=== PATIENT | female | born 1960 | race Caucasian/White ===

== ENCOUNTER 2017-04-17 07:54 | Day surgery (SDC) | payer OTHER ==
[~2017-04-17] VITALS: Ht 160 cm; Wt 68.5 kg
[~2017-04-17 07:54] MED LIST: 0.9% Sodium Chloride 1,000 ML IV SCH; ALBU6.7H INH; ECON15CR10 TOP; PRE20 PO; PRE625 VAGINAL; Sodium Chloride LOK Flush 10 mL Syringe IV PRN; TRIA60LO12 TP; fentaNYL-PF 50 mCg/mL 2 mL Inj IVPUSH PRN
[2017-04-17 08:15] VITALS: BP 148/106; PULSE 110; O2SAT 96
--- NOTE | 2017-04-17 09:27 | PCM.ENDCOL ---
Colonoscopy Date of Service: Apr 17, 2017 Physician Hiram Godinez MD Pre Procedure Diagnosis: Diarrhea family history of colon cancer Post Procedure Dx & Findings: Hemorrhoids diverticuli Procedure Colonoscopy PROCEDURE IN DETAIL: Prep adequate Withdrawal time 12 minutes After unremarkable rectal examination except for there was a 2 mm spot perianally ,the Olympus video colonoscope was inserted patient's anal canal and was advanced to cecum. Landmarks were identified including the ileocecal valve and appendiceal orifice. Scope further events to terminal ileum. Advanced 8 cm. Visualized terminal ileum show normal villous structures of any ulcer mass or erosions. Scope was withdrawn systematically. Visualized colonic mucosa showed healthy shiny mucosa with normal healthy-appearing vasculature. Diverticuli noted small mostly in the sigmoid however isolated up to the ascending colon. During the procedure, she mentions the identical discomfort while going through the sigmoid colon. Random biopsies are done for workup of diarrhea from the cecum to the rectum. In the rectum retroflexion was done which showed hemorrhoids. Anal canal was inspected carefully on the way out and hemorrhoids noted. Impression Diverticulosis Patient had identical discomfort when going through the sigmoid colon. 2 mm spot perianal. Patient knew about this and she said she has had this for many years. The primary care doctor is following a carefully according to the patient. I will defer this management to the primary care doctor. Hemorrhoids Recommendation Repeat colonoscopy 5 years Diverticular diet Presedation Assessment Risks and Benefits Informed consent was obtained from the patient after all risks and benefits including but not limited to drug reaction, infection, pain, bleeding, perforation, as well as alternatives were discussed. Patient monitoring Continuous pulse oximetry, cardiac monitoring, blood pressure monitoring, IV access, and oxygen at 2L per nasal cannula. Periprocedural Fentanyl: Fentanyl 200mcg Incrementally Midazolam: Midazolam 10mg Incrementally Complications There were no periprocedural complications identified. Post Procedure Plan Post Procedure Recommendations 1. Restrict activities today. 2. Resume normal activities in the morning. 3. Resume medications. 4. Patient informed of normal post procedure side effects as bloating, drowsiness, blood streaking in the stool. 5. average risk CRCS. If colon polyps come back as: -Hyperplastic- can repeat colonoscopy in 10 years -Tubular adenoma- repeat colonoscopy in 5 years -Tubulovillous/villous adenoma- repeat colonoscopy in 3 years -If any dysplasia- return to clinic as soon as possible 6. Please don't hesitate to call me with any questions. Hiram Godinez MD Apr 17, 2017 09:27
[2017-04-17 09:29] VITALS: BP 124/83; PULSE 93; RESP 16; O2SAT 97
[2017-04-17 09:36] VITALS: BP 111/75; PULSE 95; RESP 16; O2SAT 97
[2017-04-17 09:41] VITALS: BP 119/80; PULSE 86; RESP 16; O2SAT 99
--- NOTE | 2017-04-21 14:07 | PATH ---
SURGICAL PATHOLOGY Attending Physician:Hiram Godinez M.D. CASE STATUS: Signed Out PATIENT NAME: LEÓN FLOWERS PID: [id number] : 1960 DATE COLLECTED:04/17/2017 16:12 SPECIMEN: Colon, Biopsy CLINICAL HISTORY: 1). RANDOM COLON BIOPSY FINAL DIAGNOSIS: Random Colon, Biopsies: Colonic mucosa with increased mononuclear cell infiltrate of the lamina propria and patchy increased intraepithelial lymphocytosis. See comment. ICD10: R19.7 NOTE: The histologic findings could be consistent with lymphocytic colitis in the appropriate clinical and endoscopic setting. GROSS DESCRIPTION: The specimen is received in one formalin filled container labeled with the patient's name, sublabeled "random colon" and consists of multiple portions of tissue which aggregate to 0.5 x 0.4 x 0.2 CM. The specimen is filtered and entirely submitted in one cassette. 04/17/2017DC ICD-9 CODES: CPT CODES: 1: 11527 Electronically Signed Out Sunday Arteaga MD, Ph.D. [facility] Pathology [facility] [address], [place] [address] Technical component performed at [facility], [address] [place] [address] Ave[address], [place], [address]
== END 2017-04-17 23:59 | disposition home or self-care (01) ==
LOC: END 07:54
PROVIDERS: ATTEND Internal Medicine
DX: R19.7 Diarrhea, unspecified (principal); K52.832 Lymphocytic colitis; K57.30 Diverticulosis of large intestine without perforation or abscess without bleeding; K64.8 Other hemorrhoids; Z86.010 Personal history of colon polyps; Z80.0 Family history of malignant neoplasm of digestive organs
CPT/HCPCS: 45380; 99153; G0500; J2250; J3010; J7030